=== PATIENT | female | born 1985 | race Caucasian/White ===

== ENCOUNTER 2020-02-13 15:14 | Emergency (ER) | payer MEDICAID, SELFPAY ==
[2020-02-13 15:15] VITALS: BP 123/69; PULSE 106; RESP 16; TEMP 36.9; O2SAT 98; BMI 30.2
--- NOTE | 2020-02-13 15:35 | ED.DCSUM_ITS ---
- ER Visit Summary Date of Service: 02/13/20 Chief Complaint: [Cough] History of Present Illness: The patient is a 34 F [presents the emergency department complaint of a cough that started 2 days ago. Patient complains of a headache with the cough. She complains of chills. Patient also complains of diffuse body aches. Patient denies any exposures to individuals with known COVID-19. 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 She has no medical history otherwise.] Physical Examination: [HEENT-PERRLA, EOMI. Cranial nerves II through XII grossly intact. TMs clear. Mucous membranes moist. No adenopathy. Cardiovascular-regular rate and rhythm without murmur or ectopy Lungs-clear to auscultation, chest wall stable without crepitus or subcu emphysema Abdomen-normoactive bowel sounds, soft, nontender, no rebound or rigidity, no peritoneal signs. Extremities-intact ?4, normal range of motion, normal pulses, atraumatic] Test Results: [COVID-19 test ordered and pending] Emergency Department Course and Treatment: [] Treatment Plan: [Patient advised to self quarantine for 14 days. 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 Patient advised to return if increasing shortness of breath or condition should worsen anyway] Impression: [Viral URI-rule out COVID-19] This note was generated with [employer] dictation software. It may contain incorrect words, spelling, and punctuation that were not noted in review of the chart prior to signing ED Disposition - Plan for ED Patient: Referrals: Care Physician,No Primary [Primary Care Provider] -
--- NOTE | 2020-02-13 15:36 | ED.DEP ---
ED Disposition - Plan for ED Patient: Instructions: ED URI Viral Referrals: Care Physician,No Primary [Primary Care Provider] - Yovani Gutierrez MD [STAFF PHYSICIAN] - 5-7 Days
== END 2020-02-13 16:06 | disposition home or self-care (01) ==
LOC: ED 16:03
PROVIDERS: Emergency Provider Emergency Medicine
DX: J06.9 Acute upper respiratory infection, unspecified (principal); Z03.818 Encounter for observation for suspected exposure to other biological agents ruled out; Z72.0 Tobacco use
CPT/HCPCS: 87635; 99282; G2023; U0003

== ENCOUNTER 2021-12-11 19:19 | Emergency (ER) | payer MEDICAID, SELFPAY ==
[2021-12-11 19:20] VITALS: BP 120/52; PULSE 100; RESP 16; TEMP 36.6; O2SAT 98; BMI 29.2
--- NOTE | 2021-12-11 19:36 | RAD_ITS ---
STUDY: X-RAY - RIGHT TIBIA AND FIBULA REASON FOR EXAM: Female, 36 years old. Trauma TECHNIQUE: 2 view(s) of the tibia and fibula were obtained. COMPARISON: None. FINDINGS: Normal visualized tibia. Normal visualized fibula. The soft tissue structures are unremarkable. RAD/Tibia & Fibula 2 Views IMPRESSION: Normal x-ray examination of the tibia and fibula. Electronically Signed: Eliane Khan MD at 20:42 EDT ,
--- NOTE | 2021-12-11 19:36 | RAD_ITS ---
STUDY: X-RAY - PELVIS REASON FOR EXAM: Female, 36 years old. Trauma TECHNIQUE: One view of the pelvis was obtained. COMPARISON: None. FINDINGS: There is a non-specific bowel gas pattern. Normal visualized soft tissue structures. Normal bilateral iliac wings, sacroiliac joints and visualized sacrum. Normal visualized bilateral superior and inferior pubic rami. Normal pubic symphysis. Normal ischial tuberosities. Normal visualized right femoral head. Normal right acetabulum. Normal right hip joint. Normal visualized left femoral head. Normal left acetabulum. Normal left hip joint. RAD/Pelvis 1 or 2 Views IMPRESSION: Normal x-ray examination of the pelvis. Electronically Signed: Eliane Khan MD at 20:40 EDT ,
--- NOTE | 2021-12-11 19:37 | EX.ED.GENINJ ---
HPI History of Present Illness Chief Complaint: Trauma Detail of Chief Complaint: Injury to right leg that occurred prior to arrival in the emergency departm Informant: patient Onset/Context/Timing Current Severity: 05/08 Narrative Narrative: Patient presents to the emergency department with complaint of injury to her right leg. Patient states that she was pushing a vehicle/Blazer out of the garage while holding onto the frame. Patient slipped on the front tire ran over her upper thighs. Patient unable to bear weight on the right leg afterwards. She denies the vehicle going over her pelvis or abdomen. Patient rates her pain a 10 out of 10. PFSH PFSH Medical History no medical history Home Medications hydrocodone-acetaminophen 1 tab PO Q4H PRN PRN 2 Days #15 tablet 12/11/21 [Rx Last Taken Unknown] Allergy/AdvReac Type Severity Reaction Status Date / Time morphine Allergy Other Verified 12/11/21 20:05 Surgical History (Updated 12/11/21 @ 20:06 by Savanna Bartholomew) History of appendectomy Social History Smoking Status: Current every day smoker tobacco type: cigarettes ROS ROS ED Constitutional Constitutional ED: Reports systems reviewed and no addt'l complaints, except as documented; Denies body ache(s), change in weight or chills Eyes Eyes: Denies acute decrease in peripheral vision, change in vision, double vision or loss of vision ENT ENT ED: Reports none; Denies ear pain, lip swelling, loss taste/smell, neck pain, otalgia or sore throat Cardiovascular Cardiovascular: Reports none; Denies abdominal pain, chest pain with activity, leg edema, lightheadedness, palpitations, rapid heart rate or syncope Respiratory/Chest Respiratory/Chest: Reports none; Denies change in mental status, dry cough, dyspnea, hemoptysis, shortness of breath at rest or shortness of breath with exertion Gastrointestinal Gastrointestinal: Reports none; Denies abdominal pain, change in stool character, diarrhea, hematemesis, hematochezia, melena, rectal bleeding or vomiting Genitourinary Genitourinary ED: Reports none; Denies abdominal discomfort, anuria, dysuria, genital pain or polyuria Musculoskeletal Musculoskeletal: Reports none and other Details: Right leg injury ; Denies arthralgias, back pain, difficulty walking, extremity pain, muscle weakness or myalgias Integumentary Reports none; Denies abscess or rash Neurologic Neurologic: Reports none; Denies abnormal gait, confusion, focal weakness, frequent falls, headache(s), loss of vision, numbness, paresthesias, radicular pain, vertigo or weakness Psychiatric Psychiatric: Reports systems reviewed and no addt'l complaints, except as documented and none; Denies behavioral changes, confusion, difficulty concentrating, hallucinations, suicidal ideation, tactile hallucinations or visual hallucinations Endocrine Endocrinology: Denies none, cold intolerance, excessive sweating, fatigue or heat intolerance Hematologic/Lymphatic Hematologic/Lymphatic: Reports none; Denies anemia, easy bleeding or easy bruising Allergic/Immunologic Allergic/Immunologic ED: Denies as per HPI, none, lip swelling, mouth swelling, throat swelling, tongue swelling or hives EXAM Physical Exam Const Vital Signs: 12/11/21 19:20 12/11/21 20:07 Temperature 97.9 F Temperature Source Temporal Pulse Rate 100 Respiratory Rate 16 Respiratory Effort Normal Non-Labored Blood Pressure 120/52 L Blood Pressure Mean 74 Pulse Ox 98 Oxygen Delivery Method Room Air Positive well nourished and well developed General Appearance ED: well developed and NAD HEENT Reports TM's clear and moist mucous membranes normocephalic and atraumatic; Negative for trauma or tenderness Tympanic Membrane ED: Yes TM's clear Eyes PERRL and EOMs intact bilaterally General Eye ED: Negative for pale conjunctiva or scleral icterus Neck no lymphadenopathy, supple and no JVD General: Negative for tenderness Chest Wall inspection of chest normal and palpation of chest normal Chest: Negative for tenderness Resp normal respiratory effort and clear to auscultation bilaterally Effort and Inspection: Negative for respiratory distress or pain with movement Auscultation: Negative for rhonchi, wheezes or diminished lung sounds Cardio regular rate, regular rhythm, S1 normal heart sound, S2 normal heart sound and no murmurs Peripheral Pulses: pulses 2+ throughout GI normal to inspection, nondistended, normoactive bowel sounds, soft to palpation, non-tender, non-distended and no masses Back/Spine no CVA tenderness and no thoracic nor lumbar tenderness Extremity Extremity Narrative: No real toEvaluation of the right leg reveals tenderness to the mid femur without obvious deformity. Tenderness at the hip or pelvis. Pelvic ring is intact and stable. Patient also has tenderness palpation over the right lateral calf and fibula. Neurovascular intact distally. Normal femoral, popliteal, and dorsal pedal and posterior tibial pulses. Compartments are soft. General Extremety ED: Negative for edema General Extremity: Negative for edema Neuro oriented x3, CN's II-XII intact bilaterally, no sensory deficits noted and gait normal Sensorium / Orientation: awake, alert, oriented to person, oriented to place and oriented to time Motor Exam: strength 5/5 throughout and strength abnormal Psych mental status grossly normal Skin no rashes or lesions noted and no wounds MDM MDM MDM Narrative Medical decision making narrative: Patient had x-rays of the right femur as well as pelvis and right tib-fib and they were normal on my interpretation as well as radiology. Patient was medicated initially with Dilaudid and Zofran. She was observed in the department for over 2-1/2 hours and there is no evidence of compartment syndrome. Patient will be given crutches and given a prescription for Doswell for pain. I will refer her to orthopedics for follow-up in 3 to 5 days. Patient advised on signs and symptoms of compartment syndrome. Patient to return to the emergency department if weakness to the extremity, swelling and tight compartments as well as pale or white foot or condition should worsen anyway. Radiography Diagnostic Testing: Clinical Impression(s) from Imaging Studies Pelvis X-Ray 12/11/21 19:36 IMPRESSION: Normal x-ray examination of the pelvis. Electronically Signed: Eliane Khan MD at 20:40 EDT , Tibia/Fibula X-Ray 12/11/21 19:36 IMPRESSION: Normal x-ray examination of the tibia and fibula. Electronically Signed: Eliane Khan MD at 20:42 EDT , Femur X-Ray 12/11/21 20:19 IMPRESSION: Normal x-ray examination of the femur. Electronically Signed: Eliane Khan MD at 20:41 EDT , Discharge Plan Triage Chief Complaint: Trauma ED Provider: Sonia Robert Dx/Rx/DC Orders Clinical Impression: Crushing injury of leg, right Instructions: Bone Contusion, ED Contusion, Lower Extremity Prescriptions: New hydrocodone-acetaminophen [hydrocodone-acetaminophen] 1 TABLET tablet 1 tab PO Q4H PRN PRN (Reason: Pain) 2 Days Qty: 15 RF: 0 Primary Care Provider: Care Physician,No Primary Referrals: Elmer Fernando MD [STAFF PHYSICIAN] - 3-5 Days Care Physician,No Primary [Primary Care Provider] - Disposition Disposition: Home, Self Care
[2021-12-11] MEDS: HYDROmorphone 1 MG/ML Syringe IV (20:14)
[2021-12-11] MEDS: Ondansetron 4 MG/2 ML Vial IV (20:14)
--- NOTE | 2021-12-11 20:19 | RAD_ITS ---
STUDY: X-RAY - RIGHT FEMUR REASON FOR STUDY: Female, 36 years old. Trauma TECHNIQUE: 4 view(s) of the femur. COMPARISON: None. FINDINGS: Normal visualized femur. Normal visualized soft tissue structure. RAD/Femur Min 2 Views IMPRESSION: Normal x-ray examination of the femur. Electronically Signed: Eliane Khan MD at 20:41 EDT ,
== END 2021-12-11 22:18 | disposition home or self-care (01) ==
PROVIDERS: Emergency Provider Emergency Medicine; Visit Provider Emergency Medicine
DX: S77.11XA Crushing injury of right thigh, initial encounter (principal); F17.210 Nicotine dependence, cigarettes, uncomplicated; W23.0XXA Caught, crushed, jammed, or pinched between moving objects, initial encounter; Y93.89 Activity, other specified; Y99.9 Unspecified external cause status; Y92.59 Other trade areas as the place of occurrence of the external cause
CPT/HCPCS: 72170; 73552; 73590; 96374; 96375; 99284; A4216; J2405

== ENCOUNTER → 2021-12-28 | Outpatient (CLI) | payer MEDICAID, SELFPAY ==
--- NOTE | 2021-12-28 07:59 | VDLE_ITS ---
Reason For Study: Pain RIGHT GSV is normal. CFV is compressible, spontaneous, phasic, competent and demonstrates normal augmentation. FV is compressible, spontaneous, phasic, competent and demonstrates normal augmentation. POP V is compressible, spontaneous, phasic, competent and demonstrates normal augmentation. T/P Trunk is compressible. PTV is compressible. RT PerV is compressible. Procedure This is a venous duplex using B-mode, color flow and spectral Doppler. Exam performed in department. A preliminary report was called and/or faxed to [facility]. VL/Venous Duplex US, Unilateral Interpretation Summary Deep veins of the right lower extremity are patent and compressible segmentally . There is no evidence of right lower extremity deep vein thrombosis. Valvular competence jessika ears intact within the proximal deep venous system on the right . The right great saphenous vein a ppears patent and compressible segmentally. Ordering Physician: [place] Sheikh Performed By: Lashanda Yang RVT
== END | disposition home or self-care (01) ==
LOC: CVS 07:58
PROVIDERS: Visit Provider Physician Assistant
DX: M79.661 Pain in right lower leg (principal)
CPT/HCPCS: 93971